=== PATIENT | female | born 1990 | race Caucasian/White ===

== ENCOUNTER → 2016-06-27 | Outpatient (CLI) | payer BC ==
[~2016-06-27] MED LIST: PRENTAB26 PO
== END | disposition home or self-care (01) ==
LOC: C.LABSPEC 12:42
PROVIDERS: ATTEND Obstetrics & Gynecology
DX: Z34.83 Encounter for supervision of other normal pregnancy, third trimester (principal)

== ENCOUNTER 2016-07-04 12:06 | Inpatient (IN) | payer BC, OTHER ==
[~2016-07-04] VITALS: Ht 167.6 cm; Wt 92.5 kg
[2016-07-04 12:40] VITALS: Ht 167.6 cm; Wt 92.5 kg
[2016-07-04 13:59] LABS: ALT/SGPT 14 U/L (12-78); AST/SGOT 11 U/L (15-37); CREATININE 0.72 mg/dl (0.60-1.20); URIC ACID 6.7 mg/dl (2.6-7.2)
[2016-07-04 14:02] LABS: ALKALINE PHOSPHATASE 107 U/L (45-117)
[2016-07-04 14:24] LABS: HEMATOCRIT 37.9 % (37-47); MEAN CELL VOLUME 91.8 fL (80-100); MEAN CORPUSCULAR HGB CONC 34.8 g/dl (32-36); MEAN PLATELET VOLUME 10.7 fL (7.4-10.4); PLATELET COUNT 219 K/uL (130-400); RED BLOOD COUNT 4.13 M/uL (4.2-5.4); WHITE BLOOD COUNT 11.43 K/uL (4.8-10.8)
[2016-07-04] MEDS ORDERED: PENICILLIN G POTASSIUM IV 3 MU in DEXTROSE 5% 100ML 100 ML IV PRN (15:00)
[2016-07-04] MEDS ORDERED: PENICILLIN G POTASSIUM IV 6 MU in DEXTROSE 5% 250ML 250 ML IV ONE (15:00)
[2016-07-04] MEDS: LACTATED RINGER'S 1000ML 1,000 ML IV SCH ×2 (16:23→22:59)
[2016-07-04] MEDS ORDERED: FENTANYL CITRATE INJ 50 MCG/1 ML 2 ML VIAL ONE (23:03)
[2016-07-04] MEDS ORDERED: BUPIVACAINE 0.25% 30 ML VIAL ONE (23:03)
[2016-07-04] MEDS ORDERED: FENTANYL 2MCG/ML ROPIV 1.25MG/ML 100ML BAG EPI ONE (23:03)
[2016-07-04] MEDS ORDERED: EpHEDrine SULFATE INJ 50 MG/ML AMP ONE (23:03)
[2016-07-04] MEDS ORDERED: LACTATED RINGER'S 1000ML 500 ML IV PRN ×2 (23:46→23:53)
[2016-07-04] MEDS ORDERED: NALOXONE HCL INJ 1 MG in SODIUM CHLORIDE 0.9% 1000ML 1,000 ML IV PRN (23:46)
[2016-07-05] MEDS ORDERED: FENTANYL 2MCG/ML ROPIV 1.25MG/ML 100ML BAG EPI PRN
[2016-07-05] MEDS ORDERED: NALBUPHINE HCL INJ 10 MG/ML AMP IV PRN
[2016-07-05] MEDS ORDERED: ONDANSETRON INJ 2 MG/ML 2 ML VIAL IV PRN
[2016-07-05] MEDS ORDERED: EpHEDrine SULFATE INJ 50 MG/ML AMP IV PRN
[2016-07-05] MEDS ORDERED: DiphenhydrAMINE HCL 50 MG/ML VIAL IV PRN
[2016-07-05] MEDS ORDERED: NALOXONE HCL INJ 0.4 MG/1 ML VIAL/CARP IV PRN
[2016-07-05] MEDS ORDERED: ACETAMINOPHEN 500 MG TAB PO STA (00:19)
[2016-07-05] MEDS ORDERED: ACETAMINOPHEN/CODEINE 300/30MG TAB PO PRN ×2 (01:45)
[2016-07-05] MEDS ORDERED: HYDROCORTISONE ACETATE 25 MG SUPP PR PRN (01:45)
[2016-07-05] MEDS ORDERED: BENZOCAINE 20% AER SPR 82.5 GM CAN EXT PRN (01:45)
[2016-07-05] MEDS ORDERED: LANOLIN OINT EXT PRN ×2 (01:45)
[2016-07-05] MEDS ORDERED: OXYTOCIN 30 UNITS/500ML NSS IV PRN ×2 (01:45)
[2016-07-05] MEDS ORDERED: SUPERCREAM 0.870 % 15GM JAR EXT PRN (01:45)
--- NOTE | 2016-07-05 02:08 | DELIVERY SUMMARY ---
DATE OF OPERATION: 07/05/2016 PREDELIVERY DIAGNOSIS: 1. 26-year-old G3, P1-0-1-1 at 37 weeks and 3 days with preeclampsia without severe features. POSTDELIVERY DIAGNOSIS: Same. FINDINGS: Viable female Apgars 8 and 9. Weight pending. SURGEON: Dr. Cedeño. ESTIMATED BLOOD LOSS: 300 mL. PROCEDURE: Spontaneous vaginal delivery and repair of first degree perineal laceration. DESCRIPTION OF DELIVERY: The patient progressed to complete with epidural analgesia. She then began to push spontaneously vaginally delivered a viable female in the left occiput anterior position. Nuchal cord x2 was noted and easily reduced. The head delivered followed by the anterior shoulder followed by the posterior shoulder, followed by the body. The baby was stimulated and a spontaneous cry was heard. The baby was placed on mother's abdomen after one minute of delayed cord clamping. The cord was doubly clamped and cut. A segment was retained for gases. Cord blood was obtained. The placenta delivered spontaneously intact with a 3-vessel cord. Of note, placenta had a marginal insertion of the cord. Pitocin was given and the uterus became firm. The uterus and vagina were swept for all clots and debris. The cervix, vagina and perineum were inspected and a first degree perineal laceration was noted. This was repaired in standard fashion with 3-0 Vicryl. Excellent hemostasis was achieved. The patient and the baby tolerated the delivery well. At the conclusion of the delivery sponge, instrument and needle counts were correct x2. I attest to the content of the Intraoperative Record and any orders documented therein. Any exceptio ns are noted below.
--- NOTE | 2016-07-05 03:16 | Anesthesia Procedure Note ---
Anesthesia Epidural Removal Nt Date & Time Jul 05, 2016 at 03:16 Vital Signs Pain Intensity: 2.0 Notes Mental Status: alert / awake / arousable, participated in evaluation Nausea / Vomiting: adequately controlled Pain: adequately controlled Airway Patency, RR, SpO2: stable & adequate BP & HR: stable & adequate Hydration State: stable & adequate Neuraxial Anesthesia: was administered, sensory block is resolving Anesthetic Complications: no major complications apparent, pt satisfied with anesthetic care Epidural: removed without complications, with tip intact
[2016-07-05] MEDS ORDERED: IBUPROFEN 600 MG TAB ONE (03:40)
[2016-07-05 05:05] VITALS: BP 120/79; PULSE 65; TEMP 36.4
[2016-07-05 08:20] VITALS: BP 132/88; PULSE 74; TEMP 36.5; O2SAT 98
[2016-07-05] MEDS: DOCUSATE SODIUM 100 MG CAP PO SCH ×2 (08:20→20:23)
[2016-07-05 08:21] LABS: HEMATOCRIT 36.9 % (37-47); MEAN CELL VOLUME 91.6 fL (80-100); MEAN CORPUSCULAR HEMOGLOBIN 31.8 pg (25-34); MEAN CORPUSCULAR HGB CONC 34.7 g/dl (32-36); PLATELET COUNT 215 K/uL (130-400); RED BLOOD COUNT 4.03 M/uL (4.2-5.4); WHITE BLOOD COUNT 13.27 K/uL (4.8-10.8)
[2016-07-05] MEDS: IBUPROFEN 600 MG TAB PO PRN ×4 (08:21→20:22)
[2016-07-05 08:54] LABS: BUN/CREATININE RATIO 10.3 (10-20); CALCIUM 8.8 mg/dl (8.5-10.1); CREATININE 0.76 mg/dl (0.60-1.20); POTASSIUM 3.9 mmol/L (3.5-5.1)
[2016-07-05 08:57] LABS: ALB/GLOB RATIO 0.6 (0.9-2)
[2016-07-05 12:30] VITALS: BP 126/85; PULSE 66; TEMP 36.4; O2SAT 98
[2016-07-05 16:40] VITALS: BP 142/88; PULSE 68; TEMP 36.5; O2SAT 98
[2016-07-05 21:15] VITALS: BP 125/78; PULSE 75; TEMP 36.3; O2SAT 99
[2016-07-05 23:05] VITALS: BP 121/73; PULSE 83; TEMP 36.5; O2SAT 98
[2016-07-06] MEDS: IBUPROFEN 600 MG TAB PO PRN ×3 (02:38→12:10)
[2016-07-06 06:17] LABS: HEMATOCRIT 33.8 % (37-47)
[2016-07-06 07:28] VITALS: BP 117/75; PULSE 50; TEMP 36.4
--- NOTE | 2016-07-06 08:40 | Progress Note ---
Subjective Jul 06, 2016. Subjective conversation w/ patient, physical exam, lab review Ambulation: ambulating normally Voiding: no voiding problems Passing Gas: Yes Diet Tolerance: Regular Diet Lochia: Small Feeding Type: Breast Feeding Pain: tolerated Objective Vital Signs Date Time Temp Pulse Resp B/P Pulse Ox O2 Delivery O2 Flow Rate FiO2 07/06/16 07:28 36.4 50 20 117/75 Room Air 07/05/16 23:05 36.5 83 20 121/73 98 Room Air 07/05/16 23:05 98 Room Air 07/05/16 21:15 36.3 75 20 125/78 99 Room Air 07/05/16 16:40 Room Air 07/05/16 16:40 36.5 68 16 142/88 98 Room Air 07/05/16 12:30 36.4 66 16 126/85 98 Room Air Physical Exam General Appearance: WELL-APPEARING, WD/WN, NO APPARENT DISTRESS Respiratory/Chest: lungs clear, normal breath sounds Cardiovascular: regular rate, rhythm Abdomen: normal bowel sounds, non tender, soft Fundus: Firm, Non-Tender, Relation to Umbilicus (at u) Extremities: non-tender, normal inspection Laboratory Results Last 24 Hours Test 07/06/16 05:46 Hemoglobin 11.4 g/dL Hematocrit 33.8 % Assessment and Plan Post- Day#: 1 Continue Routine Care: Doing well. Routine care. Mom GBS positive so likely d/c tomorrow.
[2016-07-06] MEDS: DOCUSATE SODIUM 100 MG CAP PO SCH (08:50)
--- NOTE | 2016-07-06 13:18 | Discharge Instructions ---
Discharge Instructions Admission Reason for Admission: Blood Pressure Check Discharge Discharge Diagnosis / Problem: S/P VAGINAL DELIVERY Discharge Goals Goal(s): Routine recovery after delivery Medications Continue Dispensed Medications: supercream, dermaplast, tucks, lansinoh Activity Recommendations Activity Limitations: per Instructions/Follow-up section . Instructions / Follow-Up Instructions / Follow-Up ACTIVITY RECOMMENDATIONS: * Gradual return to full activity over the next 2-3 weeks. * No lifting - nothing heavier than baby over the next 2-3 weeks. * Do not engage in vigorous exercise, sexual activity or sports until cleared by your physician. * Do not drive or operate any motorized equipment until cleared by your physician. * You may shower/bathe daily. MEDICATIONS: For discomfort or pain, you may use Acetaminophen (Tylenol), Ibuprofen (Advil), or Naproxen (Aleve) following the package directions. For constipation you may use Colace following the package directions. BREAST CARE: If you are not breast feeding: * Wear a supportive bra 24 hours a day for one to two weeks. * Avoid stimulating your breasts and nipples as much as possible during the first few weeks after delivery. * When taking a shower, have the warm water hit your back, not breasts. * When your breasts feel full, apply ice packs. Usually three to four times a day helps ease the discomfort. * Take a mild pain medication (Tylenol / Motrin) when you are uncomfortable. If breast feeding: * Use breast milk to lubricate nipples. Lansinoh cream may be used for sore nipples. You do not need to remove cream prior to breast feeding. If using a different brand of cream, check the label for directions regarding removal of cream prior to nursing. * Wear a supportive bra. * If having problems with breasts or breast feeding, call a security system sales consultant or your health care provider. EPISIOTOMY CARE: After delivery, if you have an episiotomy (stitches), the following steps will ease discomfort and aid healing. * For the first 24 hours after delivery, place ice packs next to your episiotomy to help reduce swelling. * After the first 24 hour-period, sitz baths, either portable or in the tub, are suggested. A shower with a shower arm sprayed over the episiotomy may be comforting. * Ibeth care should be done after each voiding and bowel movement. Squirt warm water from a plastic bottle over the perineum (region of the body between the anus and urinary opening) and pat dry. * Use Dermoplast to ease discomfort. Shake container. [place] directly over the episiotomy. Place a Tucks on a clean sanitary pad next to your episiotomy. SPECIAL CARE INSTRUCTIONS: When you are discharged from the hospital, it is important for you to follow the instructions listed below: * During the first week at home, you should be able to care for yourself and your baby. In addition, the usual light household activities are encouraged. * Limit your activities to the way you feel. Do not try to clean the house or move furniture. Be sensible. * If you actively engage in sports and have done so up until the time of your delivery, you may resume these activities as soon as you feel able. This may take up to one month or even longer. Use good judgment. * Continue to take your vitamins for at least six weeks after the of your baby. * Your diet need not be limited unless you were on a special diet before your delivery. Breast-feeding mothers need around 2500 calories per day and at least 64-80 ounces of fluid per day (8 to 10 glasses). * You should eat foods from the four major food groups. Crash diets or fad diets are to be avoided. Eating lean meats, fresh fruits and vegetables, low-fat dairy products, high fiber foods and a regular exercise program, will help you get back to your pre- weight without putting your health at risk. * Constipation is sometimes a problem after delivery. Take a mild laxative as needed. If breast feeding, Milk of Magnesia is acceptable to use. You may use a suppository or Fleets enema if no episiotomy. * A daily shower or tub bath is suggested. Be sure to thoroughly and gently dry the perineum. * A bloody vaginal discharge will usually continue until around four weeks post . A small amount of bleeding may continue for as long as six weeks. Vaginal discharge changes from the bright red bleeding after delivery to pink then brownish and finally yellowish-pink before becoming white and disappearing. * Bleeding may increase with activity. Your first period may come in 4-8 weeks. If you are breast feeding, your period may be delayed even longer. * [place] (sex) can begin whenever both you and your partner feel comfortable and do not have any form of genital infection. It is recommended that you wait at least six weeks for internal and external healing to occur. If you have questions, please talk to your health care practitioner. A condom should be used to prevent infection and . * Foreplay, gentle intercourse and lubrication is very important the first several times to prevent pain. A water-based lubricant such as K-Y jelly or Astroglide may be used. * If you have RH negative blood and your baby is RH positive, you will receive RHOGAM by injection prior to discharge. The nurse will give you a card to keep with you that has the date and place that you received RHOGAM after delivery. * During your care, you had a Rubella screen done to check for the presence of rubella antibodies in your blood. If your test was negative, you will receive a Rubella vaccine prior to discharge. This vaccine may cause a fever, soreness at the injection site and flu-like symptoms. If these symptoms persist, notify your health care practitioner. is not advised for one month after a Rubella vaccine. * Verbalizes understanding of car seat law as reviewed with patient nursing. * Car Seat hand-out given and reviewed with patient by nursing. * Shaken baby information reviewed with patient by nursing. Call you doctor if: * Heavy bleeding (saturating several pads an hour) or passing clots the size of your fist. * A fever >101 degrees F (38.3 degrees C) on two occasions four hours apart and /or chills. * Unusual pain in the pelvic or vaginal areas. * "Baby Blues" lasting longer than two weeks. If you have any questions or concerns, call your health care practitioner at . FOLLOW UP VISIT: * Please call the office at to schedule a 6 week examination. It is important you keep this appointment. It is important for you to make arrangements for either yearly or twice yearly check-ups thereafter. Current Hospital Diet Patient's current hospital diet: Regular OB Diet Discharge Diet Recommended Diet: Regular Diet Pending Studies Studies pending at discharge: no Medical Emergencies . Who to Call and When: Medical Emergencies: If at any time you feel your situation is an emergency, please call 911 immediately. . Non-Emergent Contact Non-Emergency issues call your: Server Programmer . . "Provider Documentation" section prepared by Yue Duron. VTE Core Measure Inpt VTE Proph given/why not?: Treatment not indicated
[2016-07-06 14:22] VITALS: BP_DIAS 75; PULSE 50; TEMP 36.4
[2016-07-06] MEDS ORDERED: BISACODYL 5 MG TABEC PO SCH (20:00)
== END 2016-07-06 14:05 | disposition home or self-care (01) | DRG 774 ==
LOC: C.OPB 12:06 → C.LD 12:07 → C.OPB 14:54 → C.LD 14:54 → C.OBG 07-05 05:11
PROVIDERS: ADMIT Student in an Organized Health Care Education/Training Program; ATTEND Obstetrics & Gynecology
PROC: 0WQNXZZ Repair Female Perineum, External Approach (ICD-10-PCS; principal; 2016-07-05)
PROC: 10E0XZZ Delivery of Products of Conception, External Approach (ICD-10-PCS; principal; 2016-07-05)
DX: O14.93 Unspecified pre-eclampsia, third trimester (principal); O69.81X1 Labor and delivery complicated by cord around neck, without compression, fetus 1; O70.0 First degree perineal laceration during delivery; O99.820 Streptococcus B carrier state complicating pregnancy; Z37.0 Single live birth; Z3A.37 37 weeks gestation of pregnancy

== ENCOUNTER → 2016-08-25 | Outpatient (CLI) | payer BC | END | disposition home or self-care (01) | LOC: C.PAPS 12:14 | PROVIDERS: ATTEND Obstetrics & Gynecology | DX: Z39.2 Encounter for routine postpartum follow-up (principal) ==

== ENCOUNTER → 2017-08-04 | Outpatient (CLI) | payer BC ==
--- NOTE | 2017-08-04 14:03 | DIAGNOSTIC IMAGING REPORT ---
TWO VIEW CHEST CLINICAL HISTORY: Cough. FINDINGS: PA and lateral chest radiographs are obtained. No prior studies are available for comparison at the time of dictation. The cardiomediastinal silhouette is unremarkable. The lungs and pleural spaces are clear. There is no pneumothorax. The bony thorax appears intact. IMPRESSION: No active disease in the chest. Electronically signed by: Florencio Oakes M.D. 08/04/2017 2:02 PM Dictated Date/Time: 08/04/2017 2:01 PM
== END | disposition home or self-care (01) ==
LOC: C.RADBC 13:51
PROVIDERS: ATTEND Internal Medicine
DX: R05 Cough (principal)

== ENCOUNTER → 2018-01-04 | Outpatient (CLI) | payer BC | END | disposition home or self-care (01) | LOC: C.LAB1850 16:32 | PROVIDERS: ATTEND Physician Assistant Medical | DX: E03.9 Hypothyroidism, unspecified (principal) ==